=== PATIENT | female | born 1955 | race Caucasian/White ===

== ENCOUNTER → 2017-06-02 | Outpatient (CLI) | payer OTHER ==
[~2017-06-02] MED LIST: B-COCAP5; CLON.5 PO; CO Q100C9; DULO1CAP3 PO; FLAXOIL4; GABA300C5 PO; LACTCAP8 PO; LOSA100T PO; METO50TA11 PO; ZOLP10TA3 PO
--- NOTE | 2017-06-02 13:47 | RADRPT ---
EXAM DATE/TIME: 06/02/2017 12:58 [place] COMPARISON: No previous studies available for comparison. INDICATIONS : Pain at right first metacarpal phalangeal joint. MEDICAL HISTORY : None. SURGICAL HISTORY : None. ENCOUNTER: Initial ACUITY: 1 day PAIN SCORE: 4/10 LOCATION: Right upper extremity FINDINGS: No definite fractures, or dislocations are identified. No definite lytic or sclerotic lesion is seen . Slight degenerative arthritis is present within multiple interphalangeal joints and first carpometa carpal joint. CONCLUSION: Osteoarthritis. KMike Kay MD on June 02, 2017 at 13:44 Board Certified Radiologist. This report was verified electronically.
== END ==
LOC: HRAD 12:34
PROVIDERS: ATTEND Family Medicine
DX: M79.641 Pain in right hand (principal)
CPT/HCPCS: 73130